=== PATIENT | female | born 1980 | race Caucasian/White ===

== ENCOUNTER 2017-04-15 02:52 | Emergency (ER) | payer SELFPAY ==
[2017-04-15 05:27] LABS: ABSOLUTE BASOPHILS # (AUTO) 0.1 10^3/uL (0.0-0.2); ABSOLUTE EOSINOPHILS # (AUTO) 0.1 10^3/uL (0.0-0.6); ABSOLUTE LYMPHOCYTES (AUTO) 2.4 10^3/uL (0.5-4.7); ABSOLUTE MONOCYTES (AUTO) 0.4 10^3/uL (0.1-1.4); ABSOLUTE NEUT (AUTO) 5.7 10^3/uL (1.7-8.2); EOSINOPHILS % (AUTO) 1.5 % (0-6); HEMATOCRIT 37.1 % (36.0-47.0); HEMOGLOBIN 12.5 g/dL (12.0-15.5); HGB HCT DIFFERENCE 0.4; LYMPHOCYTES % (AUTO) 27.8 % (13-45); MEAN CORPUSCULAR HEMOGLOBIN 26.7 pg (27.0-33.4); MEAN CORPUSCULAR HGB CONC 33.6 g/dL (32.0-36.0); MEAN CORPUSCULAR VOLUME 80 fl (80-97); MONOCYTES % (AUTO) 4.7 % (3-13); RED BLOOD COUNT 4.66 10^6/uL (3.72-5.28); RED CELL DISTRIBUTION WIDTH 14.4 % (11.5-14.0); WHITE BLOOD COUNT 8.8 10^3/uL (4.0-10.5)
[2017-04-15 05:41] LABS: ALANINE AMINOTRANSFERASE 34 U/L (9-52); ALKALINE PHOSPHATASE 75 U/L (38-126); ANION GAP 8 (5-19); ASPARTATE AMINO TRANSFERASE 18 U/L (14-36); BILIRUBIN,DIRECT 0.4 mg/dL (0.0-0.4); BILIRUBIN,TOTAL 0.4 mg/dL (0.2-1.3); BLOOD UREA NITROGEN 12 mg/dL (7-20); CARBON DIOXIDE 25 mmol/L (22-30); CHLORIDE 107 mmol/L (98-107); CREATININE RESULT 0.59 mg/dL (0.52-1.25); GLUCOSE 94 mg/dL (75-110); POTASSIUM 4.4 mmol/L (3.6-5.0); SODIUM 140.3 mmol/L (137-145)
[2017-04-15 06:58] LABS: APPEARANCE,URINE SLIGHTLY-CLOUDY; BILIRUBIN,URINE NEGATIVE (NEGATIVE); GLUCOSE, URINE NEGATIVE (NEGATIVE); KETONES,URINE NEGATIVE (NEGATIVE); LEUKOCYTE ESTERASE,URINE TRACE (NEGATIVE); NITRITE,URINE NEGATIVE (NEGATIVE); PROTEIN,URINE NEGATIVE (NEGATIVE); URINE SPECIFIC GRAVITY 1.012; UROBILINOGEN,URINE NEGATIVE mg/dL (<2.0)
[2017-04-15] MEDS ORDERED: DICYCLOMINE HCL INJ 20 MG/2 ML AMPULE IM ONE (06:59)
[2017-04-15] MEDS ORDERED: HYDROCODONE/ACETAMINOPHEN 5-325 MG TABLET PO ONE (07:00)
--- NOTE | 2017-04-15 07:42 | ER Document Report ---
ED General - General Chief Complaint: Rectal Bleeding Stated Complaint: RECTAL BLEEDING SINCE SUNDAY Time Seen by Provider: 04/15/17 06:14 TRAVEL OUTSIDE OF THE [place] IN LAST 30 DAYS: No - HPI Patient complains to provider of: Rectal bleeding left lower quadrant abdominal pain Notes: Patient is coming in for left lower quadrant abdominal pain and rectal bleeding. Patient states this is been ongoing for the last 5-6 days. Patient states history of diverticulitis in the past. Patient states this is similar to her diverticulitis in the past. Patient states nausea is no vomiting intermittent diarrhea. Denies any fevers or chills denies any trauma. Patient states was diagnosed by CT scan in July patient denies any history of colonoscopy or EGD studies. Denies any other past medical history denies blood thinning medications. Patient is resting comfortably upon my evaluation. - Related Data Allergies/Adverse Reactions: codeine [Codeine] Allergy (Intermediate, Verified 04/15/17 02:57) Nausea Past Medical History - Social History Smoking Status: Unknown if Ever Smoked Family History: Arthritis, CAD, CVA, DM, Hyperlipidemia, Hypertension, Thyroid Disfunction - Past Medical History Cardiac Medical History: Reports: Hx Hypertension - pre eclamptic Neurological Medical History: Denies: Hx Seizures Renal/ Medical History: Reports: Hx Ectopic , Hx Ovarian Cysts - PCO S. Denies: Hx Peritoneal Dialysis Skin Medical History: Reports Hx Psoriasis Traumatic Medical History: Reports: Hx Fractures - ankle Past Surgical History: Reports: Hx Appendectomy, Hx Section. Denies: Hx Pacemaker - Immunizations Hx Diphtheria, Pertussis, Tetanus Vaccination: Yes Hx Pneumococcal Vaccination: 09/10/00 Review of Systems - Review of Systems Constitutional: No symptoms reported EENT: No symptoms reported Cardiovascular: No symptoms reported Respiratory: No symptoms reported Gastrointestinal: Abdominal pain, Diarrhea, Rectal bleeding Genitourinary: No symptoms reported Female Genitourinary: No symptoms reported Musculoskeletal: No symptoms reported Skin: No symptoms reported Hematologic/Lymphatic: No symptoms reported Neurological/Psychological: No symptoms reported -: Yes All other systems reviewed and negative Physical Exam - Vital signs Vitals: Temp Pulse Resp BP Pulse Ox 97.8 F 95 20 140/91 H 97 04/15/17 02:57 04/15/17 02:57 04/15/17 02:57 04/15/17 02:57 04/15/17 02:57 Interpretation: Normal - General General appearance: Appears well, Alert - HEENT Head: Normocephalic, Atraumatic Eyes: Normal Pupils: PERRL - Respiratory Respiratory status: No respiratory distress Chest status: Nontender Breath sounds: Normal Chest palpation: Normal - Cardiovascular Rhythm: Regular Heart sounds: Normal auscultation Murmur: No - Abdominal Inspection: Normal Distension: No distension Bowel sounds: Normal Tenderness: Tender - Left lower quadrant tenderness mild to moderate. No: McBurney's point, Engle's sign, Guarding, Rebound Organomegaly: No organomegaly - Back Back: Normal, Nontender - Extremities General upper extremity: Normal inspection, Nontender, Normal color, Normal ROM , Normal temperature General lower extremity: Normal inspection, Nontender, Normal color, Normal ROM , Normal temperature, Normal weight bearing. No: Gem's sign - Neurological Neuro grossly intact: Yes Cognition: Normal Orientation: AAOx4 [place] Coma Scale Eye Opening: Spontaneous Kinjal Coma Scale Verbal: Oriented Kinjal Coma Scale Motor: Obeys Commands Kinjal Coma Scale Total: 15 Speech: Normal Motor strength normal: LUE, RUE, LLE, RLE Sensory: Normal - Psychological Associated symptoms: Normal affect, Normal mood - Skin Skin Temperature: Warm Skin Moisture: Dry Skin Color: Normal Course - Re-evaluation Re-evalutation: 04/15/17 14:14 Lab work does not reveal any inconsistent pathology however examination is concerning for another acute diverticular flare. At this time clinical examination points to diverticulitis no signs of dell GI bleeding patient will be started on Cipro and Flagyl encouraged follow-up with primary care physicians and GI specialist. Patient states understanding diet restrictions were given to the patient. Patient will be discharged home - Vital Signs Vital signs: Temp Pulse Resp BP Pulse Ox 98.2 F 85 24 H 137/84 H 96 04/15/17 08:32 04/15/17 07:41 04/15/17 08:00 04/15/17 07:01 04/15/17 08:00 - Laboratory Result Diagrams: 04/15/17 05:13 04/15/17 05:13 Laboratory results interpreted by me: 04/15/17 04/15/17 05:13 06:45 MCH 26.7 L RDW 14.4 H Urine Blood MODERATE H Ur Leukocyte Esterase TRACE H Discharge - Discharge Clinical Impression: Diverticulitis Qualifiers: Diverticulitis site: unspecified part of intestinal tract Diverticulitis bleeding: with bleeding Diverticulitis complication: unspecified complication status Qualified Code(s): K57.93 - Diverticulitis of intestine, part unspecified , without perforation or abscess with bleeding Condition: Good Disposition: HOME, SELF-CARE Instructions: Diverticulitis ([facility]), Ciprofloxacin ([facility]), Oral Narcotic Medication ([facility]), Metronidazole ([facility]), Low Residue Diet ([facility]), Family Physicians / Practices, Gastroenterology Additional Instructions: Examination is consistent with diverticulitis. Highly recommend she follow-up with a primary care physician and GI specialist. Take medications as prescribed. Return to ER symptoms worsen. Prescriptions: Ciprofloxacin HCl [Cipro 500 mg Tablet] 500 mg PO BID #14 tablet Hydrocodone Bit/Acetaminophen [Hydrocodon-Acetaminophen 5-325] 1 each PO Q6 #30 tablet Metoclopramide HCl [Reglan] 5 mg PO Q6 #30 tablet Metronidazole [Flagyl 500 mg Tablet] 500 mg PO Q6H #28 tablet Forms: Return to Work
[2017-04-15 08:24] VITALS: BP 137/84
== END 2017-04-15 08:32 | disposition home or self-care (01) ==
LOC: ER 02:52
DX: K57.93 Diverticulitis of intestine, part unspecified, without perforation or abscess with bleeding (principal); K62.5 Hemorrhage of anus and rectum; R11.0 Nausea; R19.7 Diarrhea, unspecified; Z88.5 Allergy status to narcotic agent; Z90.49 Acquired absence of other specified parts of digestive tract
CPT/HCPCS: 99283; 96372; 36415; 87045; 89055; 87205; 84703; 85025; 82272; 80053; 81001; 87493 ×2; J0500

== ENCOUNTER → 2017-12-10 | Outpatient (CLI) | payer OTHER ==
[2017-12-10 13:43] LABS: ABSOLUTE BASOPHILS # (AUTO) 0.1 10^3/uL (0.0-0.2); ABSOLUTE EOSINOPHILS # (AUTO) 0.1 10^3/uL (0.0-0.6); ABSOLUTE LYMPHOCYTES (AUTO) 2.3 10^3/uL (0.5-4.7); ABSOLUTE MONOCYTES (AUTO) 0.5 10^3/uL (0.1-1.4); ABSOLUTE NEUT (AUTO) 6.9 10^3/uL (1.7-8.2); BASOPHILS % (AUTO) 0.6 % (0-2); EOSINOPHILS % (AUTO) 1.2 % (0-6); HEMATOCRIT 40.6 % (36.0-47.0); HEMOGLOBIN 13.6 g/dL (12.0-15.5); LYMPHOCYTES % (AUTO) 23.6 % (13-45); MEAN CORPUSCULAR HEMOGLOBIN 25.8 pg (27.0-33.4); MEAN CORPUSCULAR HGB CONC 33.5 g/dL (32.0-36.0); MEAN CORPUSCULAR VOLUME 77 fl (80-97); MONOCYTES % (AUTO) 4.7 % (3-13); PLATELET COUNT 364 10^3/uL (150-450); RED BLOOD COUNT 5.28 10^6/uL (3.72-5.28); SEGMENTED NEUTROPHILS % (AUTO) 69.9 % (42-78); TOTAL CELLS COUNTED % (AUTO) 100 %; WHITE BLOOD COUNT 9.9 10^3/uL (4.0-10.5)
[2017-12-10 13:55] LABS: ALANINE AMINOTRANSFERASE 31 U/L (9-52); ALBUMIN 4.7 g/dL (3.5-5.0); ALKALINE PHOSPHATASE 66 U/L (38-126); ANION GAP 11 (5-19); ASPARTATE AMINO TRANSFERASE 17 U/L (14-36); BILIRUBIN,DIRECT 0.2 mg/dL (0.0-0.4); BILIRUBIN,TOTAL 0.2 mg/dL (0.2-1.3); BLOOD UREA NITROGEN 12 mg/dL (7-20); CARBON DIOXIDE 27 mmol/L (22-30); CHLORIDE 103 mmol/L (98-107); GLUCOSE 94 mg/dL (75-110); POTASSIUM 4.5 mmol/L (3.6-5.0); SODIUM 140.9 mmol/L (137-145); TOTAL PROTEIN 7.4 g/dL (6.3-8.2)
[2017-12-11 07:42] LABS: HEPATITIS A AB IGM Negative (Negative); HEPATITIS B CORE AB IGM Negative (Negative); HEPATITS B SURFACE ANTIGEN Negative (Negative)
[2017-12-11 09:30] LABS: HEPATITIS C VIRUS ANTIBODY <0.1 s/co ratio (0.0-0.9)
== END ==
LOC: LAB 13:02
PROVIDERS: ATTEND Physician Assistant
DX: L40.0 Psoriasis vulgaris (principal); Z79.899 Other long term (current) drug therapy
CPT/HCPCS: 36415; 80048; 80074; 80076; 85025; 86480

== ENCOUNTER → 2018-03-04 | Outpatient (CLI) | payer OTHER ==
--- NOTE | 2018-03-04 16:32 | RADIOLOGY REPORT (SQ) ---
EXAM DESCRIPTION: CHEST 2 VIEWS COMPLETED DATE/TIME: 03/04/2018 3:18 pm REASON FOR STUDY: COUGH COMPARISON: 05/19/2014 EXAM PARAMETERS: NUMBER OF VIEWS: two views TECHNIQUE: Digital Frontal and Lateral radiographic views of the chest acquired. RADIATION DOSE: NA LIMITATIONS: none FINDINGS: LUNGS AND PLEURA: No opacities, masses or pneumothorax. No pleural effusion. MEDIASTINUM AND HILAR STRUCTURES: No masses or contour abnormalities. HEART AND VASCULAR STRUCTURES: Heart normal size. No evidence for failure. BONES: No acute findings. HARDWARE: None in the chest. OTHER: No other significant finding. IMPRESSION: NO ACUTE RADIOGRAPHIC FINDING IN THE CHEST. TECHNICAL DOCUMENTATION: JOB ID: [id number] [employer]- All Rights Reserved Reading location - IP/workstation name: [email or web address]
== END ==
LOC: RAD 15:05
PROVIDERS: ATTEND Nurse Practitioner Family
DX: R05 Cough (principal)
CPT/HCPCS: 71046

== ENCOUNTER 2018-03-19 11:59 | Emergency (ER) | payer OTHER ==
[2018-03-19 13:30] LABS: APPEARANCE,URINE CLEAR; BILIRUBIN,URINE NEGATIVE (NEGATIVE); GLUCOSE, URINE NEGATIVE (NEGATIVE); KETONES,URINE NEGATIVE (NEGATIVE); LEUKOCYTE ESTERASE,URINE NEGATIVE (NEGATIVE); NITRITE,URINE NEGATIVE (NEGATIVE); PROTEIN,URINE NEGATIVE (NEGATIVE); URINE SPECIFIC GRAVITY 1.008; UROBILINOGEN,URINE NEGATIVE mg/dL (<2.0)
[2018-03-19 13:31] LABS: COLOR,URINE LIGHT YELLOW
[2018-03-19 13:38] LABS: ABSOLUTE BASOPHILS # (AUTO) 0.1 10^3/uL (0.0-0.2); ABSOLUTE EOSINOPHILS # (AUTO) 0.1 10^3/uL (0.0-0.6); ABSOLUTE LYMPHOCYTES (AUTO) 2.2 10^3/uL (0.5-4.7); ABSOLUTE MONOCYTES (AUTO) 0.4 10^3/uL (0.1-1.4); BASOPHILS % (AUTO) 0.5 % (0-2); EOSINOPHILS % (AUTO) 0.8 % (0-6); LYMPHOCYTES % (AUTO) 20.7 % (13-45); MEAN CORPUSCULAR HEMOGLOBIN 26.2 pg (27.0-33.4); MEAN CORPUSCULAR HGB CONC 34.2 g/dL (32.0-36.0); MEAN CORPUSCULAR VOLUME 77 fl (80-97); PLATELET COUNT 351 10^3/uL (150-450); RED BLOOD COUNT 5.34 10^6/uL (3.72-5.28); RED CELL DISTRIBUTION WIDTH 15.2 % (11.5-14.0); TOTAL CELLS COUNTED % (AUTO) 100 %; WHITE BLOOD COUNT 10.8 10^3/uL (4.0-10.5)
[2018-03-19 14:04] LABS: BLOOD UREA NITROGEN 11 mg/dL (7-20); CALCIUM 9.5 mg/dL (8.4-10.2); GLUCOSE 87 mg/dL (75-110)
[2018-03-19 14:05] LABS: ALANINE AMINOTRANSFERASE 25 U/L (9-52); ALBUMIN 4.5 g/dL (3.5-5.0); ALKALINE PHOSPHATASE 61 U/L (38-126); ANION GAP 12 (5-19); ASPARTATE AMINO TRANSFERASE 15 U/L (14-36); BILIRUBIN,DIRECT 0.3 mg/dL (0.0-0.4); BILIRUBIN,TOTAL 0.4 mg/dL (0.2-1.3); CARBON DIOXIDE 25 mmol/L (22-30); CHLORIDE 107 mmol/L (98-107); LIPASE 208.8 U/L (23-300); POTASSIUM 4.5 mmol/L (3.6-5.0); SODIUM 143.9 mmol/L (137-145); TOTAL PROTEIN 7.6 g/dL (6.3-8.2)
[2018-03-19] MEDS ORDERED: METOCLOPRAMIDE HCL INJ/PF 10 MG/2 ML SDV IV ONE (14:13)
[2018-03-19] MEDS ORDERED: MORPHINE SULFATE 10 MG/ML INJ IV ONE ×2 (14:13→17:41)
--- NOTE | 2018-03-19 14:14 | ER Document Report ---
ED GI/ - General Chief Complaint: Abdominal Pain Stated Complaint: ABDOMINAL PAIN Time Seen by Provider: 03/19/18 13:56 Mode of Arrival: Ambulatory Information source: Patient Notes: Patient is a 37-year-old female with a history of diverticulitis and PCO S hypertension who presents to the ER today for lower abdominal pain that started 3 days ago. Patient admits to some nausea but no vomiting. She denies any fevers or chills, she denies any diarrhea, states that she had 2 bowel movements today that were normal for her. She denies any blood in her stool. Patient states that it does not necessarily feel like her previous diverticulitis episodes. She states that it is all across her lower abdomen equally. TRAVEL OUTSIDE OF THE [place] IN LAST 30 DAYS: No - Related Data Allergies/Adverse Reactions: codeine [Codeine] Allergy (Intermediate, Verified 03/19/18 12:12) Nausea Past Medical History - General Information source: Patient - Social History Smoking Status: Never Smoker Chew tobacco use (# tins/day): No Frequency of alcohol use: None Drug Abuse: None Family History: Arthritis, CAD, CVA, DM, Hyperlipidemia, Hypertension, Thyroid Disfunction Patient has suicidal ideation: No Patient has homicidal ideation: No - Past Medical History Cardiac Medical History: Reports: Hx Hypertension Neurological Medical History: Denies: Hx Seizures Renal/ Medical History: Reports: Hx Ectopic , Hx Ovarian Cysts - PCO S. Denies: Hx Peritoneal Dialysis Skin Medical History: Reports Hx Psoriasis Traumatic Medical History: Reports: Hx Fractures - ankle Past Surgical History: Reports: Hx Appendectomy, Hx Section. Denies: Hx Pacemaker - Immunizations Hx Diphtheria, Pertussis, Tetanus Vaccination: Yes Hx Pneumococcal Vaccination: 09/10/00 Review of Systems - Review of Systems Constitutional: No symptoms reported EENT: No symptoms reported Cardiovascular: No symptoms reported Respiratory: No symptoms reported Gastrointestinal: See HPI Genitourinary: No symptoms reported Female Genitourinary: No symptoms reported Musculoskeletal: No symptoms reported Skin: No symptoms reported Hematologic/Lymphatic: No symptoms reported Neurological/Psychological: No symptoms reported Physical Exam - Vital signs Vitals: Temp Pulse Resp BP Pulse Ox 98.3 F 112 H 18 138/90 H 98 03/19/18 12:16 03/19/18 12:16 03/19/18 12:16 03/19/18 12:16 03/19/18 12:16 - Notes Notes: PHYSICAL EXAMINATION: GENERAL: Obviously uncomfortable, but in no acute distress. HEAD: Atraumatic, normocephalic. EYES: Pupils equal round and reactive to light, extraocular movements intact, sclera anicteric, conjunctiva are normal. NECK: Normal range of motion, supple without lymphadenopathy LUNGS: CTAB and equal. No wheezes rales or rhonchi. HEART: Regular rate and rhythm without murmurs ABDOMEN: Soft, right lower quadrant, suprapubic, left lower quadrant, periumbilical tenderness. No guarding, no rebound BACK: no vertebral tenderness, normal ROM GI/: no CVA tenderness EXTREMITIES: Normal range of motion, no pitting edema. No cyanosis. NEUROLOGICAL: Cranial nerves grossly intact. Normal sensory/motor exams. PSYCH: Normal mood, normal affect. SKIN: Warm, Dry, normal turgor, no rashes or lesions noted Course - Re-evaluation Re-evalutation: 03/19/18 17:54 Lab work is unremarkable today except for mildly elevated white blood cell count 10.8, CT reports a very mild case of acute diverticulitis to the sigmoid colon. Patient be placed on Cipro and Flagyl, sent home with pain medication and nausea medication. Patient is happy with this plan. Urinalysis negative for infection today. Appendix absent 03/19/18 17:55 - Vital Signs Vital signs: Temp Pulse Resp BP Pulse Ox 98.3 F 112 H 14 138/92 H 98 03/19/18 12:16 03/19/18 12:16 03/19/18 16:01 03/19/18 16:00 03/19/18 16:01 - Laboratory Result Diagrams: 03/19/18 13:20 03/19/18 13:20 Laboratory results interpreted by me: 03/19/18 13:20 WBC 10.8 H RBC 5.34 H MCV 77 L MCH 26.2 L RDW 15.2 H Discharge - Discharge Clinical Impression: Diverticulitis Condition: Stable Disposition: HOME, SELF-CARE Additional Instructions: Return immediately for any new or worsening symptoms. Follow up with primary care provider, call tomorrow to make followup appointment. Prescriptions: Ciprofloxacin HCl [Cipro 500 mg Tablet] 500 mg PO BID #20 tablet Metronidazole [Flagyl 500 mg Tablet] 500 mg PO BID #20 tablet Ondansetron [Zofran Odt 4 mg Tablet] 1 - 2 tab PO Q4H PRN #15 tab.rapdis PRN Reason: For Nausea/Vomiting Oxycodone HCl/Acetaminophen [Percocet 5-325 mg Tablet] 1 - 2 tab PO Q4H PRN #15 tablet PRN Reason: Forms: Return to Work Referrals: WINNIE GOULD, [employer] [Primary Care Provider] - Follow up as needed
--- NOTE | 2018-03-19 17:31 | RADIOLOGY REPORT (SQ) ---
EXAM DESCRIPTION: CT ABD/PELVIS WITH IV ORAL COMPLETED DATE/TIME: 03/19/2018 5:08 pm REASON FOR STUDY: lower abd pain, hx diverticulitis and pcos COMPARISON: 07/20/2016 TECHNIQUE: CT scan of the abdomen and pelvis performed using helical scanning technique with dynamic intravenous contrast injection. Oral contrast. Images reviewed with lung, soft tissue, and bone win dows. Reconstructed coronal and sagittal MPR images reviewed. Delayed images for evaluation of the ur inary system also acquired. All images stored on PACS. All CT scanners at this facility use dose modulation, iterative reconstruction, and/or weight based d osing when appropriate to reduce radiation dose to as low as reasonably achievable (ALARA). [facility]: Dose Right [facility]: CareDose [facility]: Dose Right [facility]: Teradose 4D [facility]: Hungrio CONTRAST TYPE AND DOSE: contrast/concentration: Isovue 370.00 mg/ml; Total Contrast Delivered: 100.0 ml; Total Saline Delivered: 50.0 ml RENAL FUNCTION: BUN 11 creatinine 0.54 RADIATION DOSE: CT Rad equipment meets quality standard of care and radiation dose reduction techniq ues were employed. CTDIvol: 19.5 - 20.5 mGy. DLP: 2244 mGy-cm.. LIMITATIONS: None. FINDINGS: LOWER CHEST: No significant findings. No nodules or infiltrates. LIVER: Normal size. No masses. No dilated ducts. SPLEEN: Normal size. No focal lesions. PANCREAS: No masses. No significant calcifications. No adjacent inflammation or peripancreatic fluid collections. Pancreatic duct not dilated. GALLBLADDER: No identified stones by CT criteria. No inflammatory changes to suggest cholecystitis. ADRENAL GLANDS: No significant masses or asymmetry. RIGHT KIDNEY AND URETER: No solid masses. No significant calcifications. No hydronephrosis or hyd roureter. LEFT KIDNEY AND URETER: No solid masses. No significant calcifications. No hydronephrosis or hydr oureter. AORTA AND VESSELS: No aneurysm. No dissection. Renal arteries, SMA, celiac without stenosis. RETROPERITONEUM: No retroperitoneal adenopathy, hemorrhage or masses. BOWEL AND PERITONEAL CAVITY: Extensive descending and sigmoid diverticulosis. There is questionably mild wall thickening in a segment sigmoid colon. There do not appear to be significant inflammatory changes in the fat, however. APPENDIX: Surgically absent. PELVIS: No mass. No free fluid. Normal bladder. ABDOMINAL WALL: No masses. No hernias. BONES: No significant or acute findings. OTHER: No other significant finding. IMPRESSION: Diverticulosis coli. Cannot exclude very limited diverticulitis in the sigmoid colon. TECHNICAL DOCUMENTATION: JOB ID: [id number] Quality ID # [id number]: Final reports with documentation of one or more dose reduction techniques (e.g., Au tomated exposure control, adjustment of the mA and/or kV according to patient size, use of iterative reconstruction technique) 2010 [employer]- All Rights Reserved Reading location - IP/workstation name: [email or web address]
[2018-03-19 18:04] VITALS: BP 148/85
== END 2018-03-19 18:04 | disposition home or self-care (01) ==
LOC: ER 11:59
DX: K57.32 Diverticulitis of large intestine without perforation or abscess without bleeding (principal); I10 Essential (primary) hypertension; R11.0 Nausea; Z88.5 Allergy status to narcotic agent
CPT/HCPCS: 96376; 99284; 96374; 96375; 36415; 83690; 85025; 81025; 80053; 81001; 74177; J2765; J2270

== ENCOUNTER → 2018-10-31 | Outpatient (CLI) | payer OTHER | LOC: OD 14:09 | PROVIDERS: ATTEND Otolaryngology | DX: J30.9 Allergic rhinitis, unspecified (principal) | CPT/HCPCS: 36415; 82785; 86003 ==

== ENCOUNTER → 2019-02-24 | Outpatient (CLI) | payer OTHER | LOC: LAB 14:56 | PROVIDERS: ATTEND Physician Assistant | DX: L40.0 Psoriasis vulgaris (principal); L81.4 Other melanin hyperpigmentation; Z79.899 Other long term (current) drug therapy | CPT/HCPCS: 36415 ==

== ENCOUNTER 2019-08-31 11:06 | Emergency (ER) | payer OTHER ==
[2019-08-31] MEDS ORDERED: ACYCLOVIR SODIUM INJ/PF 500 MG/10 ML SDV IV ONE (11:19)
--- NOTE | 2019-08-31 11:23 | ER Document Report ---
ED Medical Screen (RME) - General Chief Complaint: Rash Stated Complaint: RASH Time Seen by Provider: 08/31/19 11:11 Primary Care Provider: BESSY WASSERMAN MD [Primary Care Provider] - Follow up as needed Notes: 39-year-old female with hypertension, PCOS, psoriasis presents to the emergency department with a rash over her left eye. Patient states she was seen in urgent care on Sunday, diagnosed with shingles, placed on valacyclovir, and instructed to go to emergency department if the rash started spreading towards her eye. Patient states in the interval 2-day. The rash has spread down towards her eyebrow and she is getting swelling of her left eyelid and swelling and pain in the preauricular area. No fevers or chills, patient states that the rash is itchy but she denies any prodromal symptoms. Exam: Left supraorbital erythema and swelling, left preauricular lymphadenopathy I have greeted and performed a rapid initial assessment of this patient. A comprehensive ED assessment and evaluation of the patient, analysis of test results and completion of medical decision making process will be conducted by an additional ED providers. TRAVEL OUTSIDE OF THE [place] IN LAST 30 DAYS: No - Related Data Allergies/Adverse Reactions: codeine [Codeine] Allergy (Intermediate, Verified 08/31/19 11:11) Nausea Home Medications: valtrex Past Medical History - Social History Chew tobacco use (# tins/day): No Frequency of alcohol use: Occasional - Past Medical History Cardiac Medical History: Reports: Hx Hypertension Neurological Medical History: Denies: Hx Seizures Renal/ Medical History: Reports: Hx Ectopic , Hx Ovarian Cysts - PCO S. Denies: Hx Peritoneal Dialysis Skin Medical History: Reports Hx Psoriasis Traumatic Medical History: Reports: Hx Fractures - ankle Past Surgical History: Reports: Hx Appendectomy, Hx Section. Denies: Hx Pacemaker - Immunizations Hx Diphtheria, Pertussis, Tetanus Vaccination: Yes Physical Exam - Vital signs Vitals: Temp Pulse Resp BP Pulse Ox 98 F 97 18 149/84 H 97 08/31/19 11:11 08/31/19 11:11 08/31/19 11:11 08/31/19 11:11 08/31/19 11:11 Course - Vital Signs Vital signs: Temp Pulse Resp BP Pulse Ox 98 F 97 18 149/84 H 97 08/31/19 11:11 08/31/19 11:11 08/31/19 11:11 08/31/19 11:11 08/31/19 11:11 Doctor's Discharge - Discharge Referrals: BESSY WASSERMAN MD [Primary Care Provider] - Follow up as needed
--- NOTE | 2019-08-31 11:49 | ER Document Report ---
ED General - General Chief Complaint: Rash Stated Complaint: RASH Time Seen by Provider: 08/31/19 11:11 Primary Care Provider: AUREA HILL MD [ACTIVE STAFF] - Follow up tomorrow (CALL EYE DOCTOR TOMORROW AT 8 AM WITHOUT FAIL. ) BESSY WASSERMAN MD [ACTIVE STAFF] - Follow up in 3-5 days TRAVEL OUTSIDE OF THE [place] IN LAST 30 DAYS: No - HPI Notes: 39-year-old female to the emergency department with complaints of painful rash and swelling over her left thigh and down her left side of face that is been ongoing since Sunday. She states that she was diagnosed with shingles on Sunday at urgent care. She states she was given a shot of steroids as well as antivirals and she thinks antibiotics. She states that she was sent home with Valtrex. She states she has been taking the medicine but she thinks that the swelling and pain is gotten worse. She states that she wears glasses but that she feels like her eyes a little bit blurry. She denies any fevers or chills. - Related Data Allergies/Adverse Reactions: codeine [Codeine] Allergy (Intermediate, Verified 08/31/19 11:11) Nausea Home Medications: valtrex Past Medical History - General Information source: Patient, Relative - Social History Smoking Status: Never Smoker Chew tobacco use (# tins/day): No Frequency of alcohol use: Occasional Lives with: Spouse/Significant other Family History: Arthritis, CAD, CVA, DM, Hyperlipidemia, Hypertension, Thyroid Disfunction Patient has suicidal ideation: No Patient has homicidal ideation: No - Past Medical History Cardiac Medical History: Reports: Hx Hypertension Neurological Medical History: Denies: Hx Seizures Renal/ Medical History: Reports: Hx Ectopic , Hx Ovarian Cysts - PCO S. Denies: Hx Peritoneal Dialysis Skin Medical History: Reports Hx Psoriasis Traumatic Medical History: Reports: Hx Fractures - ankle Past Surgical History: Reports: Hx Appendectomy, Hx Section. Denies: Hx Pacemaker - Immunizations Hx Diphtheria, Pertussis, Tetanus Vaccination: Yes Hx Pneumococcal Vaccination: 09/10/00 Review of Systems - Review of Systems Constitutional: denies: Chills, Fever EENT: Eye pain, Blurred vision, Other - facial pain. denies: Ear pain Cardiovascular: denies: Chest pain, Palpitations, Syncope, Dizziness, Lightheaded Respiratory: denies: Cough, Short of breath Gastrointestinal: denies: Abdominal pain, Diarrhea, Nausea, Vomiting Genitourinary: denies: Frequency, Flank pain Musculoskeletal: denies: Back pain, Joint pain, Joint swelling, Muscle pain Skin: See HPI, Rash Hematologic/Lymphatic: No symptoms reported Neurological/Psychological: No symptoms reported -: Yes All other systems reviewed and negative Physical Exam - Vital signs Vitals: Temp Pulse Resp BP Pulse Ox 98.0 F 97 18 149/84 H 96 08/31/19 11:09 08/31/19 11:09 08/31/19 11:09 08/31/19 11:09 08/31/19 11:09 Interpretation: Normal - General General appearance: Alert In distress: Mild Notes: mild pain discomfort - HEENT Head: Normocephalic, Atraumatic Eyes: Normal Pupils: PERRL Ears: Normal External canal: Normal Tympanic membrane: Normal Sinus: Normal Nasal: Normal Mouth/Lips: Normal Mucous membranes: Normal Pharynx: Normal Neck: Normal, Supple. No: Lymphadenopathy, Meningismus Notes: to the skin above the left eyebrow there is erythema, crusting of the skin and edema. It is TTP. There is another erythematous area to the skin just above the bridge of the left side of the nose and there is erythema and edema to the left side of the face in front of the left ear. It is also very TTP. There are no dell vesicles -- more 3-4 honey crusted lesions. There is no vesicles to the tip of the nose (negative Cassidy's) and no vesicles to the auricle or inside of the ear. Wood's lamp stain reveals no foreign body to the left eye and no dendrites to the eye. there is no rust ring. - Respiratory Respiratory status: No respiratory distress Chest status: Nontender Breath sounds: Normal Chest palpation: Normal - Cardiovascular Rhythm: Regular Heart sounds: Normal auscultation Murmur: No - Back Back: Normal, Nontender - Neurological Neuro grossly intact: Yes Cognition: Normal Orientation: AAOx4 [place] Coma Scale Eye Opening: Spontaneous Kinj[place] Coma Scale Verbal: Oriented Kinjal Coma Scale Motor: Obeys Commands [place] Coma Scale Total: 15 Speech: Normal Cranial nerves: Normal. 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 No: Pronator drift Sensory: Normal - Psychological Associated symptoms: Normal affect, Normal mood - Skin Skin Temperature: Warm Skin Moisture: Dry Skin Color: Normal Course - Re-evaluation Re-evalutation: 08/31/19 13:37 Discussed this patient with Dr. Pennington, ER attending, who came to the bedside with me. He also fully examined the patient. Agrees that this may not actually be Shingles, but more of a facial cellulitis. He also performed Wood's lamp again and agrees that the patient has no dendrites. Agrees no Cassidy's sign. We will give patient a round of IV Antiviral to cover, but will also give a dose of IV clinda. Plan will be to control her pain and discharge home with close outpatient follow up with ophthalmology. Dr. Pennington does not think that imaging is needed at this point. Patient agrees with the plan. I will call patient tomorrow to ensure she is having success with follow up as well. Will have her see her PCP on Sunday. - Vital Signs Vital signs: Temp Pulse Resp BP Pulse Ox 98.2 F 75 16 136/77 H 97 08/31/19 14:26 08/31/19 14:26 08/31/19 14:26 08/31/19 14:26 08/31/19 14:26 - Laboratory Result Diagrams: 08/31/19 11:52 08/31/19 11:52 Laboratory results interpreted by me: 08/31/19 08/31/19 11:52 11:52 MCV 77 L MCH 25.3 L RDW 15.4 H Chloride 108 H - Diagnostic Test Radiology reviewed: Image reviewed Discharge - Discharge Clinical Impression: Facial cellulitis, Cellulitis of left upper eyelid, Left eye pain Condition: Stable Disposition: HOME, SELF-CARE Instructions: Cellulitis ([facility]) Additional Instructions: COMPLETE ALL ANTIBIOTICS. TAKE ALL OTHER MEDICINES PRESCRIBED. FOLLOW UP WITH THE EYE DOCTOR LISTED WITHOUT FAIL TOMORROW. CALL AT 8 AM FOR AN APPOINTMENT. RAFAEL MARIE WILL CALL YOU TOMORROW TO ENSURE YOU HAVE HAD SUCCESS GETTING FOLLOW UP. FOLLOW UP WITH PCP ON SUNDAY WITHOUT FAIL. Prescriptions: Ondansetron [Zofran Odt 4 mg Tablet] 1 - 2 tab PO Q4HP PRN #10 tab.rapdis PRN Reason: Sulfamethoxazole/Trimethoprim [Bactrim Ds Tablet] 1 each PO BID #20 tablet Oxycodone HCl/Acetaminophen [Percocet 5-325 mg Tablet] 1 tab PO Q6H PRN #15 tab PRN Reason: Referrals: BESSY WASSERMAN MD [ACTIVE STAFF] - Follow up in 3-5 days AUREA HILL MD [ACTIVE STAFF] - Follow up tomorrow (CALL EYE DOCTOR TOMORROW AT 8 AM WITHOUT FAIL. )
[2019-08-31] MEDS ORDERED: MORPHINE SULFATE 10 MG/ML INJ IV ONE ×2 (12:13→13:26)
[2019-08-31] MEDS ORDERED: ONDANSETRON HCL INJ/PF 4 MG/2 ML SDV IV ONE (12:13)
[2019-08-31] MEDS ORDERED: CLINDAMYCIN 600 MG/D5W RTU 600 MG/50 ML RTUPB IV ONE (12:13)
[2019-08-31 12:23] LABS: ABSOLUTE BASOPHILS # (AUTO) 0.1 10^3/uL (0.0-0.2); ABSOLUTE EOSINOPHILS # (AUTO) 0.1 10^3/uL (0.0-0.6); ABSOLUTE LYMPHOCYTES (AUTO) 2.2 10^3/uL (0.5-4.7); ABSOLUTE MONOCYTES (AUTO) 0.7 10^3/uL (0.1-1.4); BASOPHILS % (AUTO) 0.7 % (0-2); EOSINOPHILS % (AUTO) 1.2 % (0-6); HEMATOCRIT 39.4 % (36.0-47.0); LYMPHOCYTES % (AUTO) 23.9 % (13-45); MEAN CORPUSCULAR HEMOGLOBIN 25.3 pg (27.0-33.4); MEAN CORPUSCULAR HGB CONC 32.9 g/dL (32.0-36.0); MEAN CORPUSCULAR VOLUME 77 fl (80-97); MONOCYTES % (AUTO) 7.3 % (3-13); PLATELET COUNT 373 10^3/uL (150-450); RED BLOOD COUNT 5.12 10^6/uL (3.72-5.28); RED CELL DISTRIBUTION WIDTH 15.4 % (11.5-14.0); SEGMENTED NEUTROPHILS % (AUTO) 66.9 % (42-78); TOTAL CELLS COUNTED % (AUTO) 100 %
[2019-08-31 12:25] LABS: ALBUMIN 4.2 g/dL (3.5-5.0); ALKALINE PHOSPHATASE 58 U/L (38-126); ANION GAP 11 (5-19); ASPARTATE AMINO TRANSFERASE 17 U/L (14-36); BILIRUBIN,DIRECT 0.1 mg/dL (0.0-0.4); BILIRUBIN,TOTAL 0.4 mg/dL (0.2-1.3); BLOOD UREA NITROGEN 11 mg/dL (7-20); CARBON DIOXIDE 23 mmol/L (22-30); CHLORIDE 108 mmol/L (98-107); GLUCOSE 101 mg/dL (75-110); POTASSIUM 3.9 mmol/L (3.6-5.0); TOTAL PROTEIN 7.3 g/dL (6.3-8.2)
[2019-08-31 14:30] VITALS: BP 136/77
== END 2019-08-31 14:30 | disposition home or self-care (01) ==
LOC: ER 11:06
DX: H00.034 Abscess of left upper eyelid (principal); L03.211 Cellulitis of face; H57.12 Ocular pain, left eye
CPT/HCPCS: 36415; 87040; 84703; 85025; 80053; J0133; J2270; J2405; 96365; 96367; 96375; 96376; 99283